=== PATIENT | female | born 1975 ===

== ENCOUNTER 2020-10-09 10:17 | Emergency (ER) | payer BC ==
[~2020-10-09] VITALS: Ht 152.4 cm; Wt 65.8 kg
[2020-10-09] MEDS ORDERED: ZOLOFT100 MG (10:40)
[2020-10-09] MEDS ORDERED: BACTRIM DS TAB1 EACH PO (14:48)
[2020-10-09] MEDS ORDERED: BETAMETHASONE D15 G2 TOP (14:48)
== END 2020-10-09 14:53 | disposition home or self-care (01) ==
LOC: ER 10:17
DX: L23.9 Allergic contact dermatitis, unspecified cause (principal); R21 Rash and other nonspecific skin eruption; B95.7 Other staphylococcus as the cause of diseases classified elsewhere